=== PATIENT | male | born 1955 | race Caucasian/White ===

== ENCOUNTER 2022-06-03 22:21 | Inpatient (IN) | payer MEDICARE, OTHER ==
[~2022-06-03] VITALS: Ht 160 cm; Wt 90.4 kg
--- NOTE | 2022-06-03 22:10 | NUR ---
Admitted a 66 years old patient from [facility] with Dx of Corporal Cellulitis and Anasarca. Patient AAOx3-4. In no acute distress. No complain of pain or SOB on admission. NSR on tele with HR of 89/min. IV site on right AC intact and patent. Routine admission care done. Plan of care initiated. Safety measure initiated and call light within reached.
[2022-06-04] VITALS: BP 152/88
[2022-06-04] MEDS ORDERED: ONDANSETRON 4 MG/2 ML VIAL IV PRN
[2022-06-04] MEDS ORDERED: MELATONIN 3 MG TABLET PO PRN
[2022-06-04] MEDS ORDERED: MAGNESIUM HYDROXIDE 30 ML LIQUID UDC PO PRN
[2022-06-04] MEDS ORDERED: ACETAMINOPHEN 650 MG SUPP.RECT RC PRN
[2022-06-04] MEDS ORDERED: ALBUTEROL SULFATE 2.5 MG/ 0.5 ML NEBU NEB PRN (00:15)
[2022-06-04] MEDS ORDERED: CARVEDILOL 6.25 MG TABLET PO SCH (00:15)
[2022-06-04] MEDS ORDERED: TAMSULOSIN HCL 0.4 MG CAP.SR.24H PO SCH (00:15)
[2022-06-04] MEDS ORDERED: IPRATROPIUM BROMIDE 0.5 MG/2.5 ML NEBU NEB PRN (00:15)
[2022-06-04] MEDS ORDERED: FLUTICASONE/SALMETEROL 250/50 INHALER INH SCH ×2 (00:15→09:00)
[2022-06-04] MEDS ORDERED: BETHANECHOL CHLORIDE 25 MG TABLET PO PRN (00:15)
[2022-06-04] MEDS ORDERED: FUROSEMIDE 20 MG/2 ML VIAL IV ONE (00:30)
[2022-06-04] MEDS ORDERED: OLANZAPINE 5 MG TABLET PO PRN (00:30)
[2022-06-04 00:40] LABS: *BILIRUBIN,URIN NEGATIVE (NEGATIVE); *COLOR,URINE YELLOW (YELLOW); *KETONES,URINE NEGATIVE (NEGATIVE); *UROBILINOGEN,URINE 0.2 E.U./dl (NORMAL); LEUKOCYTE ESTERASE ,URINE 1+ (NEGATIVE); NITRITE, URINE NEGATIVE (NEGATIVE); PH,URINE 5.5 (5.0-8.0); UGLUCOSE NEGATIVE (NEGATIVE)
[2022-06-04 00:44] LABS: *BLOOD, URINE TRACE (NEGATIVE); *CLARITY,URINE HAZY (CLEAR)
[2022-06-04] MEDS ORDERED: CEFAZOLIN 1 G in IV DEXTROSE 5% 50 ML IV SCH (01:00)
[2022-06-04] MEDS ORDERED: CEFAZOLIN 1 G VIAL IM SCH (01:00)
[2022-06-04 01:01] LABS: BACTERIA,URINE FEW /HPF (NONE SEEN); SQUAMOUS EPITHELIAL CELL,UR NONE SEEN /HPF (NONE SEEN)
[2022-06-04 01:20] VITALS: BP 152/88
[2022-06-04] MEDS ORDERED: ACETAMINOPHEN 325 MG TABLET PO PRN (01:45)
--- NOTE | 2022-06-04 04:38 | NUR ---
Patient anxious, agitated and aggressive towards staff and demanding to go AMA. Educated patient to the risk of leaving AMA but patient still insisting to leave AMA and had already put his own clothes on. Informed Dr. Fitzgerald that patient was given Melatonin 3mg PO and Zyprexa 5mg PO at 0119 for anxiety and slept until 0400, but woke up anxious and agitated and Dr Fitzgerald stated if the patient wants to leave, let him go. Patient signed AMA. Discontinue IV line. Patient not in respiratory distress. Able to verbalized his wishes to leave. All belongings with patient. Escorted patient out by [facility] via wheelchair.
--- NOTE | 2022-06-04 04:39 | NUR ---
Both Charge nurse Regi and [facility] department supervisor Alexandra aware of patient Leaving AMA.
[2022-06-04] MEDS ORDERED: FLUTICASONE/VILANTEROL 1 EACH BLST.W.DEV INH SCH (09:00)
[2022-06-04] MEDS ORDERED: ATORVASTATIN 20 MG TABLET PO SCH (21:00)
== END 2022-06-04 04:38 | disposition left against medical advice (07) | DRG 872 ==
LOC: MEDSURG3 22:21 → TELE3 22:42 → MEDSURG3 06-04 00:25
PROVIDERS: ADMIT Internal Medicine; ATTEND Internal Medicine
DX: A41.9 Sepsis, unspecified organism (principal); L03.311 Cellulitis of abdominal wall; J44.1 Chronic obstructive pulmonary disease with (acute) exacerbation; N39.0 Urinary tract infection, site not specified; R60.1 Generalized edema; F25.9 Schizoaffective disorder, unspecified; F17.210 Nicotine dependence, cigarettes, uncomplicated; Z88.6 Allergy status to analgesic agent; S30.811A Abrasion of abdominal wall, initial encounter; X58.XXXA Exposure to other specified factors, initial encounter; Y92.89 Other specified places as the place of occurrence of the external cause; N40.1 Benign prostatic hyperplasia with lower urinary tract symptoms; R33.8 Other retention of urine; K21.9 Gastro-esophageal reflux disease without esophagitis; I10 Essential (primary) hypertension; Z53.29 Procedure and treatment not carried out because of patient's decision for other reasons; E78.00 Pure hypercholesterolemia, unspecified; Z86.711 Personal history of pulmonary embolism
CPT/HCPCS: A4663; G0378; J0690; J1940